=== PATIENT | female | born 1985 | race Caucasian/White ===

== ENCOUNTER 2017-04-17 14:11 | Inpatient (IN) | payer BC ==
[~2017-04-17] VITALS: Ht 170.2 cm; Wt 85.9 kg
[~2017-04-17 14:11] MED LIST: FLEXERIL10 MG PO; LORTAB 5/500 501 TAB PO; NO HOME MEDICATIONS; PRENATAL1 TA1 PO
[2017-05-01] VITALS (21 sets, daily range): BP systolic 98–146; BP diastolic 46–98; PULSE 67–117; TEMP 97.6–98.3
[2017-05-01] MEDS ORDERED: TYLENOL PM EXTR1 TA1 PO (07:25)
[2017-05-01 07:59] LABS: BASO % 0.2 % (0.0-2.0); EOS # 0.1 (0.0-0.7); EOS % 0.6 % (0-4.0); GRAN # 5.6 (1.4-6.5); GRAN % 68.5 % (42.2-75.2); LYMPH # 1.9 (1.2-3.4); LYMPH % 23.8 % (20.0-51.0); MEAN CELL VOLUME 83 fl (80.0-100.0); MEAN CORPUSCULAR HGB CONC 32 g/dl (33.0-37.0); MONO # 0.5 (0.1-0.6); MONO % 6.4 % (1.7-9.3); PLATELET COUNT 175 K/mm3 (130-400); RED BLOOD COUNT 3.97 M/mm3 (4.10-5.30); REDCELL DISTRIBUTION WIDTH-CV 13.7 % (11.5-14.5); WHITE BLOOD COUNT 8.2 K/mm3 (4.8-10.8)
[2017-05-01 08:03] LABS: HEMOGLOBIN 10.4 g/dl (12.5-16.0); MEAN CORPUSCULAR HEMOGLOBIN 26 pg (27.0-31.0)
[2017-05-02] MEDS ORDERED: IBU800 M1 PO (08:46)
[2017-05-02 09:12] VITALS: BP 104/68; PULSE 89
== END 2017-05-02 13:00 | disposition home or self-care (01) | DRG 775 ==
LOC: LDR 05-01 06:56 → OB 05-01 07:00 → LDR 05-01 07:00 → OB 05-01 13:30 → EDSTATUS 05-04 06:54 → LDRO 05-04 14:11
PROVIDERS: Student in an Organized Health Care Education/Training Program
PROC: 10E0XZZ Delivery of Products of Conception, External Approach (ICD-10-PCS; principal; 2017-05-01)
PROC: 0KQM0ZZ Repair Perineum Muscle, Open Approach (ICD-10-PCS; 2017-05-01)
PROC: 3E0P7GC Introduction of Other Therapeutic Substance into Female Reproductive, Via Natural or Artificial Opening (ICD-10-PCS; 2017-05-01)
DX: O26.843 Uterine size-date discrepancy, third trimester (principal); O40.3XX0 Polyhydramnios, third trimester, not applicable or unspecified; O70.1 Second degree perineal laceration during delivery; O69.81X0 Labor and delivery complicated by cord around neck, without compression, not applicable or unspecified; Z3A.39 39 weeks gestation of pregnancy; Z37.0 Single live birth
CPT/HCPCS: J2590; J7120